=== PATIENT | male | born 1985 | race Caucasian/White ===

== ENCOUNTER 2017-08-31 18:50 | Emergency (ER) | payer OTHER ==
[~2017-08-31] VITALS: Ht 177.8 cm; Wt 205.9 kg
[2017-08-31] MEDS ORDERED: FORTAMET1000 MG PO (18:55)
[2017-08-31] MEDS ORDERED: LOSARTAN-HCTZ1 EAC1 PO (18:55)
== END 2017-09-01 00:34 | disposition home or self-care (01) ==
LOC: ER 18:50
DX: K52.9 Noninfective gastroenteritis and colitis, unspecified (principal)

== ENCOUNTER 2018-06-02 12:22 | Emergency (ER) | payer OTHER ==
[~2018-06-02] VITALS: Ht 177.8 cm; Wt 208.7 kg
[~2018-06-02 12:22] MED LIST: FORTAMET1000 MG PO; LOSARTAN-HCTZ1 EAC1 PO
[2018-06-02] MEDS ORDERED: LOSARTAN POTAS100 MG (12:59)
== END 2018-06-02 15:21 | disposition home or self-care (01) ==
LOC: ER 12:22
DX: J32.8 Other chronic sinusitis (principal)